=== PATIENT | male | born 1965 | race Caucasian/White ===

== ENCOUNTER 2018-01-29 08:14 | Emergency (ER) | payer SELFPAY ==
[~2018-01-29] VITALS: Ht 157.5 cm; Wt 77.0 kg
[2018-01-29 09:33] VITALS: BP 135/85
[2018-01-29] MEDS ORDERED: SODIUM CHLORIDE 0.9% 1,000 ML IV ONE (09:34)
[2018-01-29 09:54] LABS: EOSINOPHILS % 1.4 % (0.0-5.0); HEMATOCRIT. 43.6 % (42.0-52.0); HEMOGLOBIN. 14.9 g/dL (14.0-18.0); LYMPHOCYTES % 27.5 % (20.0-50.0); MEAN CORPUSCULAR HEMOGLOBIN 29.9 pg (28.0-32.0); MEAN CORPUSCULAR VOLUME 87.5 fL (80.0-94.0); MEAN PLATELET VOLUME 9.3 fl (7.4-10.4); MONOCYTES % 7.4 % (2.0-8.0); NEUTROPHILS % 62.7 % (40.0-76.0); PLATELET 213 x1000/uL (130-400); RED BLOOD CELL COUNT 4.98 mill/uL (4.7-6.1)
[2018-01-29 10:03] LABS: CHLORIDE 110 mEq/L (98-107)
[2018-01-29 10:07] LABS: BETA HYDROXYBUTYRATE 0.9 mMol/L (0.0-0.3)
== END 2018-01-29 12:00 | disposition home or self-care (01) ==
LOC: ER 08:51
DX: E11.65 Type 2 diabetes mellitus with hyperglycemia (principal)
CPT/HCPCS: 36415; 80053; 82010; 82962; 85025; 96360; 99284; J7030; Z7610

== ENCOUNTER 2019-01-10 17:43 | Emergency (ER) | payer MEDICAID, OTHER ==
[~2019-01-10] VITALS: Ht 165.1 cm; Wt 62.0 kg
[2019-01-11] MEDS: ONDANSETRON HCL 4MG/2ML INJ IV STA (01:37)
[2019-01-11 01:56] LABS: HEMATOCRIT. 40.7 % (42.0-52.0); HEMOGLOBIN. 13.3 g/dL (14.0-18.0); MEAN CORPUSCULAR HEMOGLOBIN 31.2 pg (28.0-32.0); MEAN CORPUSCULAR VOLUME 95.4 fL (80.0-94.0); MEAN PLATELET VOLUME 9.9 fl (7.4-10.4); PLATELET 197 x1000/uL (130-400); RED BLOOD CELL COUNT 4.27 mill/uL (4.7-6.1); RED CELL DISTRIBUTION WIDTH 13.2 % (11.6-14.6)
[2019-01-11 02:00] LABS: CHLORIDE 99 mEq/L (98-107)
[2019-01-11 02:03] LABS: INR 1.1; PROTHROMBIN TIME 10.7 sec (9.1-11.1)
[2019-01-11 02:05] LABS: ETHANOL BLOOD < 10 mg/dL
[2019-01-11 02:10] LABS: BETA HYDROXYBUTYRATE 0.1 mMol/L (0.0-0.3)
[2019-01-11] MEDS: SODIUM CHLORIDE 0.9% 1,000 ML IV ONE (02:32)
[2019-01-11 03:19] LABS: ATYPICAL LYMPHOCYTES 2; PLATELET ESTIMATE NORMAL
[2019-01-11] MEDS ORDERED: IOHEXOL-300 100 ML BOTTLE ONE (03:58)
[2019-01-11 04:09] LABS: CLARITY URINE CLEAR (CLEAR); COLOR URINE DARK YELLOW (YELLOW); KETONES URINE TRACE (NEGATIVE); LEUKOCYTE ESTERASE URINE NEGATIVE (NEGATIVE); NITRITE URINE NEGATIVE (NEGATIVE); OCCULT BLOOD URINE NEGATIVE (NEGATIVE); PH URINE 5.5 (4.5-8.0); PROTEIN URINE NEGATIVE (NEGATIVE); SPECIFIC GRAVITY URINE 1.056 (1.005-1.030)
[2019-01-11 04:15] VITALS: BP 141/70
[2019-01-11 04:21] LABS: *AMPHETAMINES SCREEN URINE NEGATIVE (NEGATIVE); *BARBITURATES SCREEN URINE NEGATIVE (NEGATIVE); *BENZODIAZEPINES SCREEN URINE NEGATIVE (NEGATIVE); *COCAINE SCREEN URINE NEGATIVE (NEGATIVE); CANNABINOID URINE SCREEN NEGATIVE (NEGATIVE); METHADONE URINE SCREEN NEGATIVE (NEGATIVE); OPIATES URINE SCREEN NEGATIVE (NEGATIVE)
[2019-01-11 04:23] LABS: PHENCYCLIDINE URINE SCREEN NEGATIVE (NEGATIVE)
== END 2019-01-11 04:15 | disposition short-term general hospital (02) ==
LOC: ER 17:43 → CANBEDREQ 01-11 06:44
DX: R17 Unspecified jaundice (principal); E11.65 Type 2 diabetes mellitus with hyperglycemia; E78.00 Pure hypercholesterolemia, unspecified
CPT/HCPCS: 36415; 71045; 74177; 76700; 80053; 80305; 81003; 82010; 82962; 83690; 84484; 85025; 85610; 87186; 93005; 96361; 96374; 99285; J2405; J7030; Q9967

== ENCOUNTER 2019-04-24 16:56 | Emergency (ER) | payer OTHER ==
[~2019-04-24] VITALS: Ht 162.6 cm; Wt 50.0 kg
[2019-04-24] MEDS ORDERED: SODIUM CHLORIDE 0.9% 1,000 ML IV ONE (17:25)
[2019-04-24] MEDS ORDERED: ONDANSETRON HCL 4MG/2ML INJ IV STA (17:25)
[2019-04-24] MEDS ORDERED: MORPHINE SULFATE 4 MG/ML CPJ (NOT FOR IM USE) IV STA (17:25)
[2019-04-24 18:35] VITALS: BP 110/72
[2019-04-24 18:52] LABS: HEMATOCRIT. 38.6 % (42.0-52.0); HEMOGLOBIN. 13.3 g/dL (14.0-18.0); MEAN CORPUSCULAR VOLUME 87.1 fL (80.0-94.0); MEAN PLATELET VOLUME 6.7 fl (7.4-10.4); PLATELET 276 x1000/uL (130-400); RED BLOOD CELL COUNT 4.43 mill/uL (4.7-6.1); RED CELL DISTRIBUTION WIDTH 14.1 % (11.6-14.6)
[2019-04-24 18:57] LABS: CHLORIDE 101 mEq/L (98-107)
[2019-04-24 18:59] LABS: PROTHROMBIN TIME 10.5 sec (9.6-11.0)
[2019-04-24 19:01] LABS: CLARITY URINE CLEAR (CLEAR); COLOR URINE DARK YELLOW (YELLOW); KETONES URINE TRACE (NEGATIVE); LEUKOCYTE ESTERASE URINE NEGATIVE (NEGATIVE); NITRITE URINE NEGATIVE (NEGATIVE); OCCULT BLOOD URINE NEGATIVE (NEGATIVE); PH URINE 5.5 (4.5-8.0); PROTEIN URINE TRACE (NEGATIVE); SPECIFIC GRAVITY URINE 1.033 (1.005-1.030)
[2019-04-24 20:47] LABS: PLATELET ESTIMATE NORMAL
== END 2019-04-24 21:37 | disposition home or self-care (01) ==
LOC: ER 17:33 → CANBEDREQ 21:47
DX: K52.9 Noninfective gastroenteritis and colitis, unspecified (principal); D70.9 Neutropenia, unspecified; E11.9 Type 2 diabetes mellitus without complications; E78.00 Pure hypercholesterolemia, unspecified; Z98.890 Other specified postprocedural states; Z51.11 Encounter for antineoplastic chemotherapy
CPT/HCPCS: 36415; 71045; 74176; 80053; 81003; 83605; 84145; 84484; 85025; 85610; 87040; 87086; 93005; 96361; 96374; 96375; 99284; J2270; J2405; J7030; Z7610

== ENCOUNTER 2021-07-08 08:51 | Emergency (ER) | payer OTHER ==
[~2021-07-08] VITALS: Ht 157.5 cm; Wt 59.0 kg
[2021-07-08 08:54] VITALS: BP 104/66
== END 2021-07-08 11:56 | disposition home or self-care (01) ==
LOC: ER 08:51
DX: R51.9 Headache, unspecified (principal); E11.9 Type 2 diabetes mellitus without complications; E78.00 Pure hypercholesterolemia, unspecified; Z20.822 Contact with and (suspected) exposure to COVID-19; Z85.9 Personal history of malignant neoplasm, unspecified
CPT/HCPCS: 71045; 87070; 87430; 99284; C9803; U0003; U0005